=== PATIENT | female | born 1995 | race Caucasian/White ===

== ENCOUNTER 2018-02-07 09:56 | Emergency (ER) | payer OTHER ==
[~2018-02-07] VITALS: Ht 147.3 cm; Wt 61.2 kg
[2018-02-07 10:00] VITALS: BP 122/65
[2018-02-07] MEDS ORDERED: IBUPROFEN 400 MG TAB PO ONE (11:40)
[2018-02-07 12:30] VITALS: BP 110/72
== END 2018-02-07 12:30 | disposition home or self-care (01) ==
LOC: MED 09:56
DX: S16.1XXA Strain of muscle, fascia and tendon at neck level, initial encounter (principal); V43.62XA Car passenger injured in collision with other type car in traffic accident, initial encounter; Y93.I9 Activity, other involving external motion; Y92.488 Other paved roadways as the place of occurrence of the external cause; Y99.8 Other external cause status
CPT/HCPCS: 72040; 99283